=== PATIENT | male | born 1970 | race Caucasian/White ===

== ENCOUNTER 2020-03-30 10:02 | Outpatient (CLI) | payer OTHER, SELFPAY ==
[2020-03-30 10:53] LABS: Hematocrit 45.6 % (42.0-52.0); Hemoglobin 14.9 g/dL (14.0-18.0); Mean Corpuscular HGB Conc 32.7 g/dl (32-36); Mean Corpuscular Volume 88.9 fl (80-100); Mean Platelet Volume 11.2 fl (7.4-10.4); Platelet Count Result 183 k/mm3 (150-375); Red Blood Count 5.13 M/mm3 (4.6-6.20); Red Cell Distribution Width 12.4 % (11.5-14.5); White Blood Count 6.3 K/mm3 (4.5-10.0)
[2020-03-30 11:01] LABS: Add Urine Microscopic? NO; Appearance Urine Clear (Clear); Bilirubin Urine Negative (Negative); Blood Urine Negative (Negative); Color Urine Yellow (Yellow); Glucose Urine UA Negative (Negative); Ketones Urine Negative (Negative); Leukocyte Esterase Ur Negative LEU/UL (NEGATIVE); Mucus Urine Rare /lpf; Nitrate Urine Negative (Negative); Protein Urine Negative (Negative); RBC Urine 0-2 /hpf (0-2); Specific Grav Ur 1.019 (1.001-1.035); Transitional Epi Cells Urine Rare /hpf (None Seen); Urobilinogen Urine Negative mg/dL (<2.0); WBC Urine 0-3 /hpf (0-3)
[2020-03-30 11:17] LABS: Alanine Aminotransferase 28 U/L (4-50); Albumin Level 4.5 g/dL (3.5-5.1); Alkaline Phosphatase 92 U/L (38-126); Anion Gap 6 mmol/L (8-16); Aspartate Amino Transferase 28 U/L (17-59); Bilirubin,Total 0.3 mg/dL (0.2-1.3); Blood Urea Nitrogen 18 mg/dL (9-20); Calcium 9.4 mg/dL (8.4-10.2); Carbon Dioxide 32 mmol/L (22-30); Chloride 106 mmol/L (98-107); Cholesterol 162 mg/dL (0-200); Estimated Glomerular Filt Rate > 60; Glucose 122 mg/dL (75-110); HDL Direct 47 mg/dL; Potassium 4.6 mmol/L (3.4-5.0); Sodium 144 mmol/L (137-145); Triglycerides 96 mg/dL (<150)
[2020-03-30 11:28] LABS: LDL Cholesterol Direct 99 mg/dL
[2020-03-30 11:47] LABS: Prostate Specific Antigen 0.8 ng/mL (< OR = 4.0)
[2020-03-30 15:45] LABS: Hemoglobin A1C 6.3 % (<5.7)
== END 2020-03-30 10:03 | disposition home or self-care (01) ==
PROVIDERS: PCP Family Medicine; Visit Provider Family Medicine
DX: R35.1 Nocturia (principal); Z00.00 Encounter for general adult medical examination without abnormal findings; I10 Essential (primary) hypertension
CPT/HCPCS: 36415; 80053; 80061; 81003; 83036; 84153; 84443; 85027

== ENCOUNTER → 2020-05-22 04:54 | Outpatient (CLI) | payer OTHER, SELFPAY ==
[2020-05-22 19:22] LABS: SARS-CoV-2 RNA PCR Negative
== END ==
PROVIDERS: PCP Family Medicine; Visit Provider Internal Medicine Gastroenterology
DX: Z01.812 Encounter for preprocedural laboratory examination (principal); Z20.822 Contact with and (suspected) exposure to COVID-19
CPT/HCPCS: C9803; U0003; U0005

== ENCOUNTER 2020-05-25 00:38 | Day surgery (SDC) | payer OTHER, SELFPAY ==
[2020-05-19 09:41] VITALS: BMI 29.2
[2020-05-25 06:25] VITALS: BP 117/72; PULSE 72; RESP 18; TEMP 36.6; O2SAT 99; BMI 29.2
[2020-05-25] MEDS: LACTATED RINGERS 1,000 ML 150 ML IV CONT (06:35)
--- NOTE | 2020-05-25 07:00 | PM.HPGS ---
History of Present Illness History of Present Illness Consent: Risks, benefits, and alternatives have been discussed and questions answered. Patient agrees to proceed with procedure. Chief complaint: neoplasm screening Narrative: Vargas Dawkins is a 50 year old male Referred here for colon cancer screening. Review of Systems Review of Systems: All systems reviewed & are unremarkable except as noted in HPI and below PMFSH Past Medical History Medical History (Updated 05/25/20 @ 07:01 by Juan Alberto Augustine MD) No significant past medical history Surgical History Surgical History History of hernia repair History of tonsillectomy Family History Family History Father Hypertension Social History Social History Smoking packs per day: 1 Smoking cigarettes per day: 20.0 Years smoked: 25 Smoking pack-years: 25.00 Smoking status: Former smoker Tobacco type: cigarettes Second hand tobacco smoke exposure: No Smoking end date: 02/21/16 Alcohol intake: never Substance use: never Substance use type: does not use Other substance usage details: Quit many years ago Living arrangements: with family Gender identity (if verbalized by the patient): Male Spiritual care concerns: No Meds Home Medications and Allergies Home Medications Medication Instructions Recorded Confirmed Type No Home Medications 05/19/20 05/25/20 History Allergies Allergy/AdvReac Type Severity Reaction Status Date / Time No Known Allergies Allergy Verified 05/25/20 06:15 Vital Signs Vital Signs - 24 hr 05/25/20 06:25 Temperature 36.6 C Pulse Rate 72 Respiratory Rate 18 Blood Pressure 117/72 Pulse Oximetry 99 Exam Const: General: alert Orientation/consciousness: patient oriented x3 Resp: Auscultation: clear to auscultation bilaterally Cardio: Rhythm: regular rhythm GI: GI Palp: Yes Soft to palpation and No Tenderness to palpation present (GI) Neuro: General: patient oriented x3 Assessment and Plan Assessment and plan (1) Colon cancer screening: Code(s): Z12.11 - Encounter for screening for malignant neoplasm of colon Status: Acute Assessment and Plan: Colonoscopy with possible biopsy or polypectomy or cautery or injection of substances.
--- NOTE | 2020-05-25 07:01 | WPDANESEPPF ---
Anes - Initial Pre Proc Eval Procedure: Operation Date: 05/25/20 07:30 Proposed Procedures p Screening Colonoscopy - Juan Alberto Augustine MD Date/Time: 05/25/20 07:01 Surgeon: Juan Alberto Augustine MD Pre Op Diagnosis: neoplasm screening Patient Data Age: 50 Gender: M Height: 5 ft 11 in Weight: 95 kg Last Vital Signs Temp 97.9 F 05/25/20 06:25 Pulse 72 05/25/20 06:25 Resp 18 05/25/20 06:25 BP 117/72 05/25/20 06:25 Pulse Ox 99 05/25/20 06:25 Allergies Allergy/AdvReac Type Severity Reaction Status Date / Time No Known Allergies Allergy Verified 05/25/20 06:15 Home Medications Medication Instructions Recorded Confirmed Type No Home Medications 05/19/20 05/25/20 History Patient hx anesthesia problems: none Family hx anesthesia problems: none PMFSH Past Medical History Medical History (Updated 05/25/20 @ 07:01 by Juan Alberto Augustine MD) No significant past medical history Surgical History Surgical History History of hernia repair History of tonsillectomy Family History Family History Father Hypertension Social History Social History Smoking packs per day: 1 Smoking cigarettes per day: 20.0 Years smoked: 25 Smoking pack-years: 25.00 Smoking status: Former smoker Tobacco type: cigarettes Second hand tobacco smoke exposure: No Smoking end date: 02/21/16 Alcohol intake: never Substance use: never Substance use type: does not use Other substance usage details: Quit many years ago Living arrangements: with family Gender identity (if verbalized by the patient): Male Spiritual care concerns: No Anes - Eval Final PreProcedure Day of Procedure 05/25/20 07:01 Patient weight: overweight Heart: regular rate and rhythm Lungs: clear to auscultation Airway: Mallampati scale class II Neurological: alert and oriented Last oral intake: >/= 8 hours ASA classification: II Emergent: no Anesthetic plan: proceed Anesthesia type and monitoring: general GIVS and standard monitoring Informed Consent: The patient's anesthetic plan and its attendant risks and benefits were discussed with the patient/family/POA. Questions were solicited and answers provided to the satisfaction of the patient/family/POA.
[2020-05-25] MEDS: SIMETHICONE ORAL SUSPENSION 20 MG/0.3 ML 30 ML BOTTLE 0.6 ML IRRIGATION (07:33)
--- NOTE | 2020-05-25 07:39 | SUR.OPER ---
Resolution Clip Placement Lot: [id number] Exp: 2023-01-05
--- NOTE | 2020-05-25 07:40 | SUR.OPER ---
2ml of GI Tract Tattooing used in descending colon
[2020-05-25 07:47] VITALS: BP 111/71; PULSE 71; RESP 20; O2SAT 95
[2020-05-25 07:57] VITALS: BP 113/77; PULSE 72; RESP 19; O2SAT 96
[2020-05-25 08:07] VITALS: BP 113/77; PULSE 51; RESP 19; O2SAT 97
== END 2020-05-25 08:23 | disposition home or self-care (01) ==
PROVIDERS: PCP Family Medicine; Visit Provider Internal Medicine Gastroenterology
PROC: 0DJD8ZZ Inspection of Lower Intestinal Tract, Via Natural or Artificial Opening Endoscopic (ICD-10-PCS; CPT 45378; principal; 2020-05-25 07:30)
DX: Z12.11 Encounter for screening for malignant neoplasm of colon (principal); D12.4 Benign neoplasm of descending colon; K63.5 Polyp of colon; Z87.891 Personal history of nicotine dependence
CPT/HCPCS: 45385; 45381; 88305; C9803; J2704; J7120; U0003; U0005

== ENCOUNTER 2020-10-14 13:30 | Emergency (ER) | payer OTHER, SELFPAY ==
--- NOTE | ~2020-10-14 | CT_ITS ---
EXAMINATION: CT abdomen pelvis wo con DATE: 10/14/2020 14:51 INDICATION: Left flank pain. TECHNIQUE: Computed tomography (CT) of the abdomen and pelvis was performed without intravenous contr ast. Automated exposure control and iterative reconstruction technique were employed. The dose-length product was 763.59 mGy-cm. COMPARISON: None. FINDINGS: The visualized portions of the lung bases demonstrate mild atelectasis. No pleural effusion . The heart size is normal. There are coronary artery calcifications. No pericardial effusion. The li caity, gallbladder, spleen, pancreas, adrenal glands, and right kidney are normal. There is mild left h ydronephrosis and hydroureter. There is a 4 mm stone in proximal left ureter. There are bilateral ing uinal hernias containing fat. There are no dilated loops of bowel. The appendix is normal. There are no pathologically enlarged lymph nodes. There is no free intraperitoneal fluid. There is lumbar levoc urvature and moderate spondylosis. IMPRESSION: 1. 4 mm stone in proximal left ureter with mild left hydronephrosis and proximal hydroureter. Reviewed, dictated and finalized at location A. IMPRESSION: 1. 4 mm stone in proximal left ureter with mild left hydronephrosis and proxima l hydroureter.
--- NOTE | ~2020-10-14 | XR_ITS ---
EXAMINATION: XR abdomen/kub 1V DATE: 10/14/2020 15:32 INDICATION: Left-sided renal stone TECHNIQUE: A supine view of the abdomen on 2 radiographs was obtained. COMPARISON: CT dated 10/14/2020 FINDINGS: There are few linear and curvilinear atherosclerotic calcifications project over the sacrum and infer ior to the left sacroiliac joint. The left ureteral stone is not definitively identified likely super imposed over the cephalad aspect of the left sacral ala. Transitional sacralized L5 segment. Normal b owel gas pattern. Mild lingular atelectasis/scarring. IMPRESSION: 1. Small left ureteral stone seen on the CT performed one hour prior is not visualized, likely obscur ed by the left sacral ala. Reviewed, dictated and finalized at location B. IMPRESSION: 1. Small left ureteral stone seen on the CT performed one hour prior is not vis ualized, likely obscured by the left sacral ala.
[2020-10-14 13:36] VITALS: BP 127/68; PULSE 75; RESP 20; TEMP 36.4; O2SAT 99
--- NOTE | 2020-10-14 14:20 | ED.ABDPAIN ---
HPI - Abdominal Pain General Chief Complaint: Abdominal Pain Stated Complaint: LLQ abd pain Time Seen by Provider: 10/14/20 14:11 Source: RN notes reviewed History of Present Illness HPI narrative: Patient presents emergency department from work via EMS for left-sided flank pain patient states pain began suddenly approximately noon. The pain is located in her left flank and radiates around the left side abdomen described as sharp and stabbing. Associated with nausea. Denies any fevers or chills, chest pain, shortness of breath or any other symptoms of concern. Given morphine by EMS with no relief Related Data Allergies Allergy/AdvReac Type Severity Reaction Status Date / Time No Known Allergies Allergy Verified 05/25/20 06:15 Review of Systems Review of Systems: Gen.: Denies fevers or chills ENT: Denies congestion Respiratory: Denies shortness of breath or cough CV: Denies chest pain or palpitations GI: See HPI denies burning, urgency, frequency or hematuria Musculoskeletal: Denies back pain or muscle pain Neuro: Denies numbness, tingling, weakness or focal weakness Skin: Denies rash Except as documented, all other systems reviewed and negative [facility] Past Medical History Medical History (Updated 10/14/20 @ 17:09 by Billy Arndt DO) No significant past medical history Surgical History Surgical History History of hernia repair History of tonsillectomy Family History Family History Father Hypertension Social History Social History Smoking packs per day: 1 Smoking cigarettes per day: 20.0 Years smoked: 25 Smoking pack-years: 25.00 Smoking status: Former smoker Tobacco type: cigarettes Second hand tobacco smoke exposure: No Smoking end date: 02/21/16 Alcohol intake: never Alcohol use details: Quit 2017 Substance use: never Substance use type: does not use Other substance usage details: Quit many years ago Gender identity (if verbalized by the patient): Male Spiritual care concerns: No Exam Narrative: APPEARANCE: No acute distress, nontoxic, resting in bed EYES: EOMI HEENT: Normocephalic, atraumatic, OMM RESPIRATORY: No respiratory distress Clear to auscultation bilaterally with no rhonchi wheezing or rales. CARDIOVASCULAR: Regular rate and rhythm without murmurs rubs or gallops. ABDOMINAL: Soft, nondistended, tender palpation left upper quadrant left lower quadrant no tenderness right upper quadrant right lower quadrant rebound or guarding, left flank tenderness MUSCULOSKELETAl: Moves all extremities. No clubbing, cyanosis or edema. NEURO: Awake and alert. Following commands, speech normal, no focal deficits SKIN:: Warm, dry. No rashes lesions or abrasions PSYCHIATRIC: Normal affect/mood, Course Course Emergency Course: Discussed with patient results of workup and diagnosis. Discussed need for follow-up with primary care, proper use of medication, and reasons to return to the emergency department. Patient understands and agrees to current treatment plan Vital Signs Vital signs: Vital Signs Temperature 97.6 F 10/14/20 13:36 Pulse Rate 75 10/14/20 13:36 Respiratory Rate 20 10/14/20 13:36 Blood Pressure 127/68 10/14/20 13:36 Pulse Oximetry 99 10/14/20 13:36 Temperature 98.2 F 10/14/20 14:34 Pulse Rate 76 10/14/20 15:00 Respiratory Rate 16 10/14/20 15:00 Blood Pressure 163/88 H 10/14/20 15:00 Pulse Oximetry 100 10/14/20 15:00 MDM - Abdominal Pain Lab Data Result diagrams: 10/14/20 14:26 10/14/20 14:26 Labs: Lab Results 10/14/20 10/14/20 10/14/20 Range/Units 14:26 14:26 16:10 WBC 13.4 H (4.5-10.0) K/mm3 RBC 5.43 (4.6-6.20) M/mm3 Hgb 15.6 (14.0-18.0) g/dL Hct 47.2 (42.0-52.0) % MCV 86.9 (80-100) fl M
[2020-10-14 14:34] VITALS: BP 163/88; PULSE 73; RESP 16; TEMP 36.8; O2SAT 100
[2020-10-14] MEDS: SODIUM CHLORIDE 0.9% IV 1,000 ML 999 ML IV CONT (14:36)
[2020-10-14] MEDS: ONDANSETRON INJ 4 MG/2 ML VIAL IV PUSH (14:36)
[2020-10-14] MEDS: KETOROLAC 30 MG/ML VIAL (*BKC) IV PUSH (14:36)
[2020-10-14 14:59] LABS: Basophils Absolute Auto 0.1 K/mm3 (0.0-0.1); Basophils Percent Auto 0.4 % (0.2-1.2); Eosinophils Absolute Auto 0.1 K/mm3 (0-0.3); Hematocrit 47.2 % (42.0-52.0); Hemoglobin 15.6 g/dL (14.0-18.0); Immature Granulocyte Absolute 0.09 K/mm3 (0.00-0.031); Immature Granulocyte Percent A 0.7 % (0-0.5); Lymphocytes Absolute Auto 1.95 K/mm3 (0.9-3.2); Lymphocytes Percent Auto 14.5 % (18.3-44.2); Mean Corpuscular HGB Conc 33.1 g/dl (32-36); Mean Corpuscular Hemoglobin 28.7 pg (26-34); Mean Corpuscular Volume 86.9 fl (80-100); Mean Platelet Volume 11.4 fl (7.4-10.4); Monocytes Absolute Auto 0.8 K/mm3 (0.1-0.6); Monocytes Percent Auto 5.9 % (2.6-8.5); Neutrophils Absolute Auto 10.4 K/mm3 (1.3-6.7); Neutrophils Percent Auto 77.5 % (45.5-73.1); Platelet Count Result 192 k/mm3 (150-375); Red Blood Count 5.43 M/mm3 (4.6-6.20); Red Cell Distribution Width 12.9 % (11.5-14.5); White Blood Count 13.4 K/mm3 (4.5-10.0)
[2020-10-14 15:00] VITALS: BP 163/88; PULSE 76; RESP 16; O2SAT 100
--- NOTE | 2020-10-14 15:15 | PC.NURSE ---
pt provided with urinal. asked for specimen. pt stating i don't know if i can go .
[2020-10-14 15:19] LABS: Alanine Aminotransferase 27 U/L (4-50); Alkaline Phosphatase 108 U/L (38-126); Anion Gap 12 mmol/L (8-16); Aspartate Amino Transferase 32 U/L (17-59); Bilirubin,Total 0.8 mg/dL (0.2-1.3); Blood Urea Nitrogen 24 mg/dL (9-20); Calcium 9.7 mg/dL (8.4-10.2); Carbon Dioxide 24 mmol/L (22-30); Chloride 101 mmol/L (98-107); Estimated CRCL calculation 74 ml/min; Estimated Glomerular Filt Rate 58; Glucose 168 mg/dL (65-110); Lipase 71 U/L (23-300); Potassium 3.8 mmol/L (3.4-5.0); Sodium 137 mmol/L (137-145)
[2020-10-14] MEDS: TAMSULOSIN HCL 0.4 MG CAPSULE PO (15:23)
[2020-10-14] MEDS: MORPHINE SULFATE (*CRX) 4 MG/ML INJ IV PUSH (16:12)
[2020-10-14 18:08] LABS: Add Urine Microscopic? YES; Appearance Urine Clear (Clear); Bilirubin Urine Negative (Negative); Blood Urine 3+ (Negative); Color Urine Yellow (Yellow); Glucose Urine UA 1+ mg/dL (Negative); Ketones Urine 1+ mg/dL (Negative); Leukocyte Esterase Ur Negative LEU/UL (Negative); Nitrate Urine Negative (Negative); Protein Urine Negative (Negative); Specific Grav Ur 1.017 (1.001-1.035); Urobilinogen Urine Negative mg/dL (<2.0)
[2020-10-14 18:42] VITALS: BP 135/83; PULSE 81; RESP 16; O2SAT 100
== END 2020-10-14 18:44 | disposition home or self-care (01) ==
PROVIDERS: Emergency Provider Emergency Medicine; PCP Family Medicine
DX: N13.2 Hydronephrosis with renal and ureteral calculous obstruction (principal); Z87.891 Personal history of nicotine dependence
CPT/HCPCS: 36415; 51701; 74018; 74176; 80053; 81001; 83690; 85025; 96361; 96374; 96375; 99284; A9270; J1885; J2270; J2405; J7030